=== PATIENT | female | born 1945 | race Caucasian/White ===

== ENCOUNTER → 2017-02-20 | Outpatient (CLI) | payer OTHER ==
--- NOTE | ~2017-02-20 | EKG ---
[address] [address] ELECTROCARDIOGRAM REPORT Name: FAUZIA MCBRIDE Room #: REG [facility]'SOtonielOtoniel#: [id number] Admission: 02/20/17 Attend Phys: Deidre Harrington MD Discharge: Date of : 43 Report #: [id number] THIS REPORT FOR: //name// [facility] Test Date: 2017-02-20 Test Time: 10:30:43 Pat Name: FAUZIA MCBRIDE Department: Room: Gender: F Health Coach: Kira ENGLISH : 1945 Requested By: Deidre Harrington Order Number: [id number] MD: Marlo Perez Measurements Intervals [place] Rate: 49 P: 55 OK: 141 QRS: 11 QRSD: 95 T: 51 QT: 466 QTc: 421 Interpretive Statements Sinus bradycardia No previous ECG available for comparison Electronically Signed On 02-21-2017 8:22:53 [employer] MACHINE OPERATOR by Marlo Perez [email or web address] <ELECTRONICALLY SIGNED> By: Marlo Perez MD 02/21/17 0822 1030 1030 MD JAMES Eckert
== END ==
LOC: CV 10:01
DX: Z01.818 Encounter for other preprocedural examination (principal)